=== PATIENT | female | born 2000 | race Caucasian/White ===

== ENCOUNTER 2021-05-02 14:17 | Outpatient (REF) | payer OTHER, SELFPAY ==
--- NOTE | ~2021-05-02 | XR_ITS ---
EXAMINATION: XR CERVICAL SPINE CLINICAL INFORMATION: Headache COMPARISON: Cervical spine radiographs from 08/18/2017 TECHNIQUE: 3 views of the cervical spine were obtained. FINDINGS: The craniocervical junction is normal. The dens and atlantodental articulation are intact. The cervical vertebra have normal height. Alignment is normal. The disc spaces are normal. No evidence of degenerative disc disease. No fracture, subluxation or prevertebral soft tissue swelling. There is lack of lordotic curvature of the cervical spine, but this finding is unchanged compared to 08/18/2017. The visualized lung apices are normal. XR/XR cervical spine 3V IMPRESSION: * No acute osseous injury in the cervical spine. No fracture or malalignment. * No evidence of degenerative disc disease. * The lack of lordotic curvature of the cervical spine might be a manifestation of paraspinal muscle spasm.
== END 2021-05-02 14:18 | disposition home or self-care (01) ==
LOC: HO.HMGCX 14:17
PROVIDERS: PCP Pediatrics; Visit Provider Physician Assistant Medical
DX: R51.9 Headache, unspecified (principal); M54.2 Cervicalgia; V89.2XXA Person injured in unspecified motor-vehicle accident, traffic, initial encounter
CPT/HCPCS: 72040

== ENCOUNTER 2021-07-18 14:00 | Outpatient (RCR) | payer OTHER, SELFPAY ==
--- NOTE | 2021-08-17 08:37 | MHC.PT.DC ---
[facility] [place] [facility] [place] [facility] [place] [facility] [address] iNcole Jones [address] [phone] F: [phone] F: [phone] F: [phone] F: [phone] Physical Therapy Discharge Report Diagnosis: This is a 21 yo female presenting to skilled PT with a script for neck pain, HIDALGO. Date of Surgery: Date of Evaluation: 05/09/21 Date of Discharge: 08/17/21 Treatments to Date: 14 Cancellations to Date: 1 No Shows to Date: 0 Discharge Status: Achieved Goals Improved Function Independent with HEP Patient Elected to Stop Discharge Summary: Patient had progressed through her ther-ex program, she had improved HIDALGO symptoms and had returned to cheerleading. She demo'd good ROM and improving strength. The patient's chart was kept open for 30 days and then DC'd to HEP. She has met her goals and is ready for DC at this time. Electronically signed by: Almita Georges, PT Please sign and return to therapist. Thank you for your referral.
== END 2021-08-17 08:37 | disposition home or self-care (01) ==
LOC: HO.PTCHIC 14:00
PROVIDERS: PCP Pediatrics; Visit Provider Physician Assistant Medical
DX: R51.9 Headache, unspecified (principal); M54.2 Cervicalgia; V89.2XXD Person injured in unspecified motor-vehicle accident, traffic, subsequent encounter
CPT/HCPCS: 97012; 97014; 97110; 97140; 97161

== ENCOUNTER 2023-08-01 12:55 | Outpatient (AMB) | payer OTHER, SELFPAY ==
[2023-08-01 13:18] VITALS: BP 96/64; PULSE 86; O2SAT 99
--- NOTE | 2023-08-01 13:18 | A.OFFPC_ITS ---
Vital Signs 08/01/23 13:18 Height 5 ft 4 in Weight 175 lb BMI 30.0 BP 96/64 Blood Pressure Location Lt brachial Position Sitting Pulse 86 Pulse Source Pulse Oximeter Pulse Oximetry (%) 99 Oxygen Delivery Method Room Air Intake Visit Reasons: PE Intake Note: Pt is here today for PE. Pt has [facility] [employer] at [place] and her last pap was last year January. Allergies No Known Allergies [No Known Allergies*] Allergy (Verified 08/01/23 13:23) Medication List - Last Reconciled 08/01/23 by Huma Rondon MD escitalopram oxalate 1.5 tablet po medroxyprogesterone 150 mg IM [id number] methylphenidate HCl ER 36 mg PO BEDTIME Tobacco use date assessed: 08/01/23 Dental Screening Dental Screen Date: 08/01/23 Did you have a dental visit in the last 12 months?: Yes Did you have a dental problem in the last 6 months where you did not have access to dental care?: No Was dental information given to patient?: Patient has dentist HPI PE HPI Details Pt presents for PE. Pt would like to have a referral to plastic surgeon to discuss breast reduction surgery. She complains of chronic neck and shoulder pain due to large breasts which has not decrease inside after patient lost 20 lbs. [facility] Family History (Updated 08/01/23 @ 13:49 by Huma Rondon MD) Maternal Grandfather Substance use disorder Father Hyperlipidemia HTN (hypertension) Paternal Uncle Substance use disorder Paternal Uncle Substance use disorder Brother Substance use disorder Paternal Aunt Substance use disorder Mother Hypothyroid Maternal Grandmother DM type 2 (diabetes mellitus, type 2) Social History Household Members Other:: lives with parents, student at [employer] [facility] [employer] Housing: House Patient Tobacco Use Status: Never used Tobacco e-Cigarette/Vaping Use: Never Used service: No Current occupational status: employed Cognitive needs: No Hearing needs: No Vision needs: No Questionnaire PHQ-9 Over the last 2 weeks, how often have you been bothered by any of the following problems? 1. Little interest or pleasure in doing things: not at all 2. Feeling down, depressed, or hopeless: not at all 3. Trouble falling or staying asleep, or sleeping too much: several days 4. Feeling tired or having little energy: several days 5. Poor appetite or overeating: not at all 6. Feeling bad about yourself - or that you are a failure or have let yourself or your family down: not at all 7. Trouble concentrating on things, such as reading the newspaper or watching television: several days 8. Moving or speaking so slowly that other people could have noticed. Or the opposite - being so fidgety or restless that you have been moving around a lot more than usual: not at all 9. Thoughts that you would be better off or of hurting yourself in some way: not at all Total score: 3 Depression Screening Interpretation: Negative Depression Screening Done: Yes Source: Developed by Drs. Kwame Robin, Yenni Worley, Raul Cadena and colleagues, with an educational nilay from [employer]. Thrive Questionnaire Date Thrive assessed: 08/01/23 I am a: Patient What is your living situation today?: I have a steady place to live Within the past 12 months, did the food you bought not last and you didn't have the money to get more?: Never true Within the past 12 months, did you worry whether your food would run out before you got money to buy more?: Never true Do you have trouble paying for medicines?: No Do you have trouble getting transportation to medical appointments?: No Do you have trouble paying your heating and electricity bill?: No Do you have trouble taking care of your child, family member or friend?: No Do you have trouble with day-to-day activities such as bathing, preparing meals, shopping, managing finances, etc.?: No Are you currently unemployed and looking for a job?: No Are you interested in more education?: Yes Please select the resources that you would like help with: Education Currently or been in a relationship where the following occur: no concerns reported THRIVE Score: 0 AUDIT C Alcohol Use Questionnaire (AUDIT-C) 1. How often do you have a drink containing alcohol?: Monthly or less 2. How many drinks containing alcohol do you have on a typical day when you are drinking?: 1 or 2 3. How often do you have six or more drinks on one occasion?: Never Total Score: 1 BRITIN-7 AMB Questionnaire BRITNI-7 Date BRITNI - 7 assessed: 08/01/23 Feeling nervous, anxious, or on edge: 1 = Several days Not being able to stop or control worryin = Several days Worrying too much about different things: 1 = Several days Trouble relaxin = Not at all Being so restless that it is hard to sit still: 0 = Not at all Becoming easily annoyed or irritable: 0 = Not at all Feeling afraid as if something awful might happen: 1 = Several days Total BRITNI-7 score (0-4 normal; 5-9 mild; 10-14 moderate; 15-21 severe): 4 Source: Developed by Drs. Kwame Robin, Yenni Worley, Raul Cadena and colleagues, with an educational nilay from [employer]. Review of Systems Const All systems reviewed & are unremarkable except as noted in HPI and below Reports no additional complaints Eyes Reports no additional complaints ENT Reports no additional complaints Card Reports no additional complaints Resp Reports no additional complaints GI Reports no additional complaints Reports no additional complaints Physical exam (Primary Care) Vital Signs: Last Vital Signs Pulse 86 08/01/23 13:18 BP 96/64 08/01/23 13:18 Pulse Ox 99 08/01/23 13:18 Oxygen Delivery Method Room Air 08/01/23 13:18 BMI result Body Mass Index 30.0 Tobacco/Smoking Status: Tobacco use Status Tobacco use date assessed 08/01/23 08/01/23 13:25 Patient Tobacco Use Status Never used Tobacco 08/01/23 13:18 e-Cigarette/Vaping Use Never Used 08/01/23 13:18 PHQ-9: PHQ-9 Score PHQ-9: Total score 3 08/01/23 13:59 Depression Screening Interpretation: Negative Thrive Assessment: Date of Thrive Assessment Date Thrive assessed 08/01/23 08/01/23 13:58 Currently or been in a relationship where the following occur: no concerns reported Const General: no acute distress HENMT Head: Yes normal to inspection Ears: hearing grossly normal bilaterally Face and sinus: Yes normal facial exam Neck Neck: Yes no lymphadenopathy and Yes supple Resp Effort & Inspection: normal respiratory effort Auscultation: clear to auscultation bilaterally Cardio Rhythm: regular rhythm Heart sounds: S1 normal heart sound present and S2 normal heart sound present GI Inspection: Yes normal to inspection Palpation (GI): Soft to palpation Percussion: Yes normal to percussion Auscultation: normal bowel sounds Office Procedures Flu Questionnaire Does the patient have a severe egg allergy?: No Does the patient have severe life threatening allergies?: No Does the patient have a fever or illness today?: No Has the patient ever had Guillain-[place] Syndrome?: No Has the patient ever had any past reaction to a flu shot?: No Immunizations flu vacc [id number] 6mos up(PF) 60 mcg(15 mcgx4)/0.5 mL IM syringe Performing Provider: Huma Rondon MD Performing Location: [facility] Administered by: MADISON Cabrera on 08/01/23 13:58 Dose Route Admin Location Dispensed Lot Number Expiration Date NDC [employer] 0.5 mL IM Left Deltoid 0.5 mL [id number] 01/11/24 [id number] [employer] VIS Given Date VIS Provided VIS Publication Date 08/01/23 Single Vaccine 21 Eligibility Eligibility Date Funding Source Not [facility] Eligible 08/01/23 Private Assessment and Plan Assessment & Plan (1) Annual physical exam: Code(s): Z00.00 - Encounter for general adult medical examination without abnormal findings Plan: Well-balanced diet regular physical activity discussed with the patient. she will return for fasting blood work. 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 Panel Fast Today Z00.00 - Encounter for general adult medical examination without abnormal findings, Z86.59 - Personal history of other mental and behavioral disorders Complete Blood Count Auto Diff Today Z00.00 - Encounter for general adult medical examination without abnormal findings, Z86.59 - Personal history of other mental and behavioral disorders Lipid Panel Today Z00.00 - Encounter for general adult medical examination without abnormal findings, Z86.59 - Personal history of other mental and behavioral disorders TSH reflex Free T4 Today Z00.00 - Encounter for general adult medical examination without abnormal findings, Z86.59 - Personal history of other mental and behavioral disorders Influenza [id number] Immunization Today Z23 - Encounter for immunization HIV Ab/Ag Today Z00.00 - Encounter for general adult medical examination without abnormal findings Syphilis Screen Today Z00.00 - Encounter for general adult medical examination without abnormal findings CT NG by PCR Today Z00.00 - Encounter for general adult medical examination without abnormal findings Coding Level of Care Code Est Pt Prev Care [id number]([id number]) Diagnoses Annual physical exam Z00.00 Hx of major depression Z86.59 Hypertrophy of breast N62
== END 2023-08-01 14:14 | disposition home or self-care (01) ==
PROVIDERS: PCP Internal Medicine; Visit Provider Internal Medicine
DX: Z00.00 Encounter for general adult medical examination without abnormal findings (principal); Z86.59 Personal history of other mental and behavioral disorders; N62 Hypertrophy of breast; Z23 Encounter for immunization
CPT/HCPCS: 90471; 90686; 99395

== ENCOUNTER 2023-08-02 08:07 | Outpatient (REF) | payer OTHER, SELFPAY ==
[2023-08-02 11:29] LABS: MANUAL DIFF FLAG NO
[2023-08-02 11:45] LABS: Basophils Percent Auto 0.3 % (0-2); Eosinophils Absolute Auto 0.1 X10*3/uL (0.0-0.4); Eosinophils Percent Auto 0.8 % (0-4); Hematocrit 39.7 % (37.0-47.0); Hemoglobin 12.8 g/dl (12.0-16.0); Imm Gran Abs Auto 0.03 X10*3/uL (0.00-0.03); Imm Gran Pct Auto 0.3 % (0.0-0.4); Lymphocytes Absolute Auto 2.2 X10*3/uL (1.2-4.9); Lymphocytes Percent Auto 24.4 % (20-40); Mean Corpuscular HGB Conc 32.2 g/dl (31.0-35.0); Mean Corpuscular Hemoglobin 28.6 pg (27.0-33.0); Mean Corpuscular Volume 88.6 fL (80.0-98.0); Mean Platelet Volume 11.5 fL (9.4-12.3); Monocytes Absolute Auto 0.6 X10*3/uL (0.1-1.2); Monocytes Percent Auto 7.1 % (2-11); Neutrophils Percent Auto 67.1 % (45-73); Platelet Count 292 X10*3/uL (160-400); Red Blood Count 4.48 X10*6/uL (4.20-5.50); Red Cell Distribution Width 13.1 % (11.0-16.0)
[2023-08-02 12:05] LABS: Alanine Aminotransferase 15 U/L (0-31); Albumin Level 4.5 g/dL (3.5-5.0); Alkaline Phosphatase 44 U/L (39-117); Anion Gap 14 (12-20); Aspartate Amino Transferase 17 U/L (5-31); Bilirubin Total 0.5 mg/dL (0.0-1.0); Blood Urea Nitrogen 13 mg/dL (9-16); Calcium 9.5 mg/dL (8.4-10.2); Carbon Dioxide 21 mmol/L (22-29); Chloride 107 mmol/L (96-108); Cholesterol 196 mg/dL (<200); Estimated Glomerular Filt Rate > 60; Glucose Fasting 91 mg/dL (60-99); HDL Cholesterol 43 mg/dL (>40); LDL Cholesterol Calculated 138 mg/dL (<100); Potassium 3.8 mmol/L (3.3-5.1); Sodium 138 mmol/L (135-145); Total Protein 7.9 g/dL (6.5-8.0); Triglycerides 76 mg/dL (<150)
[2023-08-02 12:07] LABS: TSH reflex Free T4 2.41 uIU/mL (0.32-4.0)
[2023-08-02 13:03] LABS: CT PCR NOT DETECTED (Not Detect.); NG PCR NOT DETECTED (Not Detect.)
[2023-08-04 08:53] LABS: HIV AB/AG Nonreactive (Nonreactive); HIV Num 1 0.09 S/CO (0.00-0.99)
[2023-08-04 08:54] LABS: Syphilis Screen Nonreactive (Nonreactive)
== END 2023-08-02 08:08 | disposition home or self-care (01) ==
LOC: HO.HMGCLDS 08:07
PROVIDERS: PCP Internal Medicine; Visit Provider Internal Medicine
DX: Z00.00 Encounter for general adult medical examination without abnormal findings (principal); Z86.59 Personal history of other mental and behavioral disorders; Z20.2 Contact with and (suspected) exposure to infections with a predominantly sexual mode of transmission
CPT/HCPCS: 0353U; 80053; 80061; 84443; 85025; 86780; 87389

== ENCOUNTER → 2024-08-06 10:19 | Outpatient (BNVA) | payer OTHER, SELFPAY | PROVIDERS: PCP Internal Medicine; Visit Provider Internal Medicine | DX: Z00.00 Encounter for general adult medical examination without abnormal findings (principal); E78.5 Hyperlipidemia, unspecified; M06.9 Rheumatoid arthritis, unspecified | CPT/HCPCS: 96127 ==

== ENCOUNTER 2024-11-06 11:37 | Outpatient (REF) | payer OTHER, SELFPAY ==
--- NOTE | ~2024-11-06 | XR_ITS ---
CLINICAL HISTORY: M79.675 - Pain in left toe(s) Three views of the left foot. COMPARISON: None FINDINGS: No ankle joint effusion. Normal tarsometatarsal alignment. Tarsals and metatarsals appear intact. Linear lucency along the base of the 5th proximal phalanx, seen only on oblique imaging. Remaining phalanges appear intact. No radiopaque foreign body. IMPRESSION: 1. Linear lucency along the base of the 5th proximal phalanx seen only on oblique imaging favored to represent a small nutrient foramen or overlapping structures. Nondisplaced fracture is considered less likely. Recommend correlation point tenderness and clinical history. This document has been electronically signed by: Nghia Reed MD on 11/06/2024 13:48:35
== END 2024-11-06 11:38 | disposition home or self-care (01) ==
LOC: HO.HMGCX 11:37
PROVIDERS: PCP Internal Medicine; Visit Provider Family Medicine
DX: S92.502A Displaced unspecified fracture of left lesser toe(s), initial encounter for closed fracture (principal)
CPT/HCPCS: 73630

== ENCOUNTER 2024-11-06 11:37 | Outpatient (AMB) | payer OTHER, SELFPAY ==
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
--- OUTSIDE RECORDS SUMMARY | 2024-11-06 11:39 | XMS_ITS ---
Author Organization [address] [phone] Care Team Providers Care Electric Meter Setter Name Role Phone ARSENIO BRENNAN [phone] REASON FOR VISIT telehealth labs Medications Medication SIG (Take, Route, Frequency, Duration) [...] Female Encounters Encounter Location Date Provider Diagnosis [address] [phone] 10/03/2023 ARSENIO BRENNAN Plan Of Treatment No Information Progress Notes * LIVIAWellington BRYANgregDOB: (23 yo F)Acc No.[id number]:10/03/2023 LAB Patient:?Andry QUIÑONEZ tte Provider:?Arsenio Brennan NP :2000???Age:23 Y???Sex:Female D ate:10/03/2023 Address[place] [address] [id number] Subjective: * Chief Complaints: * ???Telehealth labs * Medical History:? * Surgical History:? * Hospitalization/Major Diagno stic Procedure:? * Medications:?TakingConcerta 18 MG Tablet Extended Release 1 tablet in the morning Orally Once a day Depo-Provera 150 MG/ML Suspension 1 ml Intramuscular Every 13- 15 weeks Doxycycline Monohydrate 100 MG Capsule 1 capsule Orally Twice a day Taking Concerta 18 MG Tablet Extended Release 1 tablet in the morning Orally Once a day Taking Depo-Provera 150 MG/ML Suspension 1 ml Intramuscular Every 13-15 weeks Taking Doxycycline Monohydrate 100 MG Capsule 1 capsule Orally Twice a day Objective: * Vitals:? Assessment: Plan: * Treatment: * Procedure Codes:? * Billing Information: * Visit Code:? * Procedure Codes:? * Sign off status: Completed true * Provider:?Arsenio Brennan NP Date:? 024 Generated for Reid pete/Betsy/Rayshawn on:?11/06/2024 11:39 AM EDT
[2024-11-06 12:35] VITALS: BP 90/60; PULSE 78; RESP 15; TEMP 36.8; O2SAT 100; BMI 32.3
--- NOTE | 2024-11-06 12:35 | MHC.OFFWIV ---
Intake Vital Signs 11/06/24 12:35 Height 5 ft 4 in Weight 188 lb BMI 32.3 BP 90/60 Blood Pressure Location Lt brachial Position Sitting Respiration 15 Pulse 78 Pulse Source Pulse Oximeter Temp 98.3 F Temp Source Oral Pulse Oximetry (%) 100 Oxygen Delivery Method Room Air Intake Visit Reasons: EP-Lt toe injured Intake Note: Pt is here today Lt little toe stumped it this morning getting up: swollen and bruised Patient Tobacco Use Status: Never used Tobacco Allergies No Known Allergies [No Known Allergies*] Allergy (Verified 11/06/24 12:38) HPI EP-Lt toe injured HPI Details Patient stubbed L 5th toe this morning. Now increasing pain and swelling with bruis at dorsal aspect of proximal toe. PFSH Surgical History [place] teeth extracted Family History Maternal Grandfather Substance use disorder Father Hyperlipidemia HTN (hypertension) Paternal Uncle Substance use disorder Paternal Uncle Substance use disorder Brother Substance use disorder Paternal Aunt Substance use disorder Mother Hypothyroid Maternal Grandmother DM type 2 (diabetes mellitus, type 2) Social History (Updated 08/06/24 @ 15:56 by Huma Rondon MD) Household Members Other:: lives with girlfriend, applying for PA, neuro Housing: House Patient Tobacco Use Status: Never used Tobacco e-Cigarette/Vaping Use: Never Used service: No Current occupational status: employed Cognitive needs: No Hearing needs: No Vision needs: No Review of Systems Const Denies chills, Denies fatigue, Denies fever(s), Denies headache(s) and Denies weakness ENT Denies dizziness and Denies headache(s) Card Denies dyspnea Resp Denies cough, Denies dyspnea, Denies wheezing and Denies other ( shortness of breath) Musc Details: See HPI Denies numbness and Denies tingling Neuro Denies dizziness, Denies headache(s), Denies numbness, Denies tingling, Denies paresthesias and Denies weakness Psych Denies anxiety and Denies depression Endo Denies fatigue Aller/Immun Denies wheezing Physical Exam Vital Signs: Last Vital Signs Temp 98.3 F 11/06/24 12:35 Pulse 78 11/06/24 12:35 Resp 15 11/06/24 12:35 BP 90/60 11/06/24 12:35 Pulse Ox 100 11/06/24 12:35 Oxygen Delivery Method Room Air 11/06/24 12:35 BMI result Body Mass Index 32.3 Const General: no acute distress and well developed Nutritional Appearance: well nourished Orientation/consciousness: patient oriented x3 HEENT Head: Yes normocephalic and Yes atraumatic Eyes General: appearance normal, both eyes and all related structures Pupils: Equal, round and reactive pupils present EOM: EOMs intact bilaterally Resp Effort & Inspection: normal respiratory effort Neuro General: patient oriented x3 and gait normal Cranial nerves: Yes Equal, round and reactive pupils present Extrem Other: Erythema and swelling at left 5th toe with bruising at dorsal aspect of proximal toe. Pain and tenderness. No angulation Patient is bearing weight Psych Affect: normal affect Assessment & Plan Assessment & Plan (1) Fracture of fifth toe, left, closed: Code(s): S92.502A - Displaced unspecified fracture of left lesser toe(s), initial encounter for closed fracture Plan: X-ray positive for left 5th toe fracture excluding joint space. Closed toe fracture, nondisplaced and no angulation. Ice/heat Elevation Antony-tape for hard-soled shoe-patient is wearing crock which is fairly inflexible. Ibuprofen 800 mg t.i.d. Call or return to office if worsening or not improving Orders: Orders XR foot LT min 3V Today M79.675 - Pain in left toe(s) Medications: New ibuprofen 800 mg PO Q8H 14 days PRN 42 tabs 0RF pain Coding Level of Care Code Est Pt Level 3 (78208) Diagnoses Fracture of fifth toe, left, closed S92.502A
== END 2024-11-06 13:35 | disposition home or self-care (01) ==
LOC: HO.HMCWIC 11:37
PROVIDERS: PCP Internal Medicine; Visit Provider Family Medicine
DX: S92.502A Displaced unspecified fracture of left lesser toe(s), initial encounter for closed fracture (principal)

== ENCOUNTER → 2024-11-06 13:05 | Outpatient (BNV) | payer OTHER, SELFPAY | PROVIDERS: PCP Internal Medicine; Visit Provider Radiology Diagnostic Radiology | DX: M79.675 Pain in left toe(s) (principal) | CPT/HCPCS: 73630 ==

== ENCOUNTER 2025-04-06 12:37 | Outpatient (AMB) | payer OTHER, SELFPAY ==
[2025-04-06 12:41] VITALS: BP 106/66; PULSE 72; RESP 18; TEMP 37.1; O2SAT 99; BMI 32.1
--- NOTE | 2025-04-06 12:41 | MHC.PC.OV ---
Vital Signs 04/06/25 12:41 Height 5 ft 4 in Weight 187 lb BMI 32.1 BP 106/66 Blood Pressure Location Rt brachial Position Sitting Respiration 18 Pulse 72 Pulse Source Pulse Oximeter Temp 98.7 F Temp Source Oral Pulse Oximetry (%) 99 Oxygen Delivery Method Room Air Intake Visit Reasons: lt breast lumps Intake Note: Pt is here today for a sick visit. Pt c/o 2 lumps on her L breast. Allergies No Known Allergies (No Known Allergies*) Allergy (Verified 04/06/25 12:53) Medication List - Last Reconciled 04/06/25 by Huma Rondon MD escitalopram oxalate 1.5 tablet po ibuprofen 800 mg PO Q8H PRN 14 days ketoconazole 2% 1 appl topical DAILY methylphenidate HCl ER 36 mg PO BEDTIME Tobacco use date assessed: 04/06/25 Dental Screening Dental Screen Date: 08/06/24 HPI lt breast lumps HPI Details Patient complains of painful left breast lumps for a few weeks. She denies any change or discharge from the nipple or swelling in the left axilla. [facility] Medical History (Updated 04/06/25 @ 15:46 by Huma Rondon MD) Rheumatoid arthritis Normal pelvic exam Constipation Hyperlipidemia Hx of major depression ADHD Breast mass, left Surgical History [place] teeth extracted Family History Maternal Grandfather Substance use disorder Father Hyperlipidemia HTN (hypertension) Paternal Uncle Substance use disorder Paternal Uncle Substance use disorder Brother Substance use disorder Paternal Aunt Substance use disorder Mother Hypothyroid Maternal Grandmother DM type 2 (diabetes mellitus, type 2) Social History Household Members Other:: lives with girlfriend, applying for PA, neuro Housing: House Patient Tobacco Use Status: Never used Tobacco e-Cigarette/Vaping Use: Never Used service: No Current occupational status: employed Cognitive needs: No Hearing needs: No Vision needs: No Questionnaire PHQ-9 Over the last 2 weeks, how often have you been bothered by any of the following problems? 1. Little interest or pleasure in doing things: not at all 2. Feeling down, depressed, or hopeless: not at all 3. Trouble falling or staying asleep, or sleeping too much: not at all 4. Feeling tired or having little energy: not at all 5. Poor appetite or overeating: not at all 6. Feeling bad about yourself - or that you are a failure or have let yourself or your family down: not at all 7. Trouble concentrating on things, such as reading the newspaper or watching television: not at all 8. Moving or speaking so slowly that other people could have noticed. Or the opposite - being so fidgety or restless that you have been moving around a lot more than usual: not at all 9. Thoughts that you would be better off or of hurting yourself in some way: not at all Total score: 0 Depression Screening Interpretation: Negative Depression Screening Done: Yes Source: Developed by Drs. Kwame Robin, Yenni Worley, Raul Cadena and colleagues, with an educational nilay from [employer]. Thrive Questionnaire Date Thrive assessed: 08/06/24 I am a: Patient What is your living situation today?: I have a steady place to live Within the past 12 months, did the food you bought not last and you didn't have the money to get more?: Never true Within the past 12 months, did you worry whether your food would run out before you got money to buy more?: Never true Do you have trouble paying for medicines?: No Do you have trouble getting transportation to medical appointments?: No Do you have trouble paying your heating and electricity bill?: No Do you have trouble taking care of your child, family member or friend?: No Do you have trouble with day-to-day activities such as bathing, preparing meals, shopping, managing finances, etc.?: No Are you currently unemployed and looking for a job?: Yes Are you interested in more education?: Yes Please select the resources that you would like help with: None Currently or been in a relationship where the following occur: No concerns reported THRIVE Score: 0 BRITNI-7 AMB Questionnaire BRITNI-7 Date BRITNI - 7 assessed: 08/06/24 Feeling nervous, anxious, or on edge: 2 = More than half the days Not being able to stop or control worryin = More than half the days Worrying too much about different things: 2 = More than half the days Trouble relaxin = More than half the days Being so restless that it is hard to sit still: 2 = More than half the days Becoming easily annoyed or irritable: 2 = More than half the days Feeling afraid as if something awful might happen: 2 = More than half the days Total BRITNI-7 score (0-4 normal; 5-9 mild; 10-14 moderate; 15-21 severe): 14 Source: Developed by Drs. Kwame Robin, Yenni Worley, Raul Cadena and colleagues, with an educational nilay from [employer]. Review of Systems Const All systems reviewed & are unremarkable except as noted in HPI and below ENT Reports no additional complaints Card Reports no additional complaints Resp Reports no additional complaints GI Reports no additional complaints Reports no additional complaints Physical exam (Primary Care) Vital Signs: Last Vital Signs Temp 98.7 F 04/06/25 12:41 Pulse 72 04/06/25 12:41 Resp 18 04/06/25 12:41 BP 106/66 04/06/25 12:41 Pulse Ox 99 04/06/25 12:41 Oxygen Delivery Method Room Air 04/06/25 12:41 BMI result Body Mass Index 32.1 Tobacco/Smoking Status: Tobacco use Status Tobacco use date assessed 04/06/25 04/06/25 12:55 Patient Tobacco Use Status Never used Tobacco 04/06/25 12:43 e-Cigarette/Vaping Use Never Used 04/06/25 12:43 PHQ-9: PHQ-9 Score PHQ-9: Total score 0 04/06/25 12:55 Depression Screening Interpretation: Negative Thrive Assessment: Date of Thrive Assessment Date Thrive assessed 08/06/24 04/06/25 12:43 Currently or been in a relationship where the following occur: No concerns reported Const General: no acute distress HENMT Head: Yes normal to inspection Neck Neck: Yes supple Chest Breast/axilla palpation: axillary lymphadenopathy noted and abnormal palpation of the breast (Left breast at 05:00 and 01:00 firm mobile masses about 1 cm tender ) Resp Effort & Inspection: normal respiratory effort Auscultation: clear to auscultation bilaterally Cardio Rhythm: regular rhythm Heart sounds: S1 normal heart sound present and S2 normal heart sound present Coding Level of Care Code Est Pt Level 3 (15044) Diagnoses Breast mass, left N63.20 Assessment & Plan Assessment & Plan (1) Breast mass, left: Comment: 05:00 and 01:00 Code(s): N63.20 - Unspecified lump in the left breast, unspecified quadrant Category: Medical Plan: Referred for the mammogram and ultrasound Orders: Orders MM tomosynthesis diagnostic BI Today N63.20 - Unspecified lump in the left breast, unspecified quadrant US breast LT limited Today N63.20 - Unspecified lump in the left breast, unspecified quadrant
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
--- OUTSIDE RECORDS SUMMARY | 2025-04-06 15:09 | XMS_ITS | Encounter Summary ---
Author Organization [facility] [place] [address] Care Team Providers Care First Aid Teacher Name Role Phone Huma Rondon MD Primary Care Provider [phone] Reason for Visit * Reason Onset Date Comments Breast Problem 04/05/2025 Encounter Details Date Type Department Care Team (Late Contact Info) Description 04/05/2025 Telephone Obstetrics and Gynecology - [id number] [place], [place] [phone] Kiesha Grayson, [facility] [address] [place], [place] Social History Tobacco Use Types Packs/Day Years Used Date Smoking Tobacco: Never Smokeless Tobacco: Never Alcohol Use Standard Drinks/Week Comments Yes 0 (1 standard drink = 0.6 oz pur e alcohol) Comments No Sex and Gender Information Value Date Recorded Sex Assigned at Not on file Legal Sex Female 9:49 PM EST Gender Identity Not on file Sexual Orientation Not on file documented as of this encounter Progress Notes * Marnie Dawson RN - 04/05/2025 10:23 AM EDT Patient reports she noticed the first lump about a month ago. Now noticed a second one-middle of her cycle. Advised patient we do not have any appointments urgently-we are booking into late April-advised her to check with her PCP to see if they can see her sooner. Pt will check with them/will gt back to us if unable to get an appointment. * Bhavna Hester - 04/05/2025 9:58 AM EDT Chief Complaint/problem: left breast lumps How long has the patient had this problem? Pt???s TAFFY CANDY MAKER provider: Kiesha Grayson CNM Last menstrual period (LMP) or EDC (due date): na documented in this encounter Plan of Treatment Not on file documented as of this encounter Visit Diagnoses Not on filedocumented in this encounter Care Teams First Aid Teacher Relationship Specialty Start Date End Date Huma Rondon MD PCP - General 01/27/23 documented as of this encounter
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
== END 2025-04-06 15:04 | disposition home or self-care (01) ==
LOC: HO.HMCC 12:38
PROVIDERS: PCP Internal Medicine; Visit Provider Internal Medicine
DX: N63.20 Unspecified lump in the left breast, unspecified quadrant (principal)

== ENCOUNTER 2025-04-20 12:28 | Outpatient (REF) | payer OTHER, SELFPAY ==
--- NOTE | ~2025-04-20 | US_ITS ---
EXAMINATION: US DIAGNOSTIC ULTRASOUND BREAST, LEFT CLINICAL INFORMATION: Palpable left breast lump 1:00 and 5:00.. Family history of breast cancer including patient's mother. COMPARISON: Comparison is made with relevant prior imaging. TECHNIQUE: Ultrasound of the breast is performed with real-time arroyo scale imaging and color Doppler. FINDINGS: Targeted color Doppler ultrasound scanning from 12-6 o'clock demonstrates a hypoechoic oval circumscribed solid mass at 5:00 6 cm from the nipple measuring 24 x 10 x 13 mm. Otherwise scanning in the upper outer quadrant and lower outer quadrant demonstrates normal fibronodular breast tissue. Results are discussed with the patient at time of visit. US/US breast LT limited IMPRESSION: Hypoechoic oval circumscribed solid mass at 5:00 6 cm from the nipple measuring up to 24 mm. Given the size of the mass and patient's family history of breast cancer recommend ultrasound-guided core needle biopsy at this time for confirmation. The findings and recommendations were discussed with the patient the procedure will be scheduled. ASSESSMENT: BI-RADS 4: Suspicious RECOMMENDATION: Biopsy This patient's information was entered into a reminder system with a target due date for their next mammogram. Electronically signed by: Florinda Valero DO 04/20/2025 01:25 PM EDT
== END 2025-04-20 12:29 | disposition home or self-care (01) ==
LOC: HO.MAMMO 12:28
PROVIDERS: PCP Internal Medicine; Visit Provider Internal Medicine
DX: N63.25 Unspecified lump in the left breast, overlapping quadrants (principal)
CPT/HCPCS: 76642

== ENCOUNTER → 2025-04-20 12:30 | Outpatient (BNV) | payer OTHER, SELFPAY | PROVIDERS: PCP Internal Medicine; Visit Provider Internal Medicine | DX: N63.23 Unspecified lump in the left breast, lower outer quadrant (principal) | CPT/HCPCS: 76642 ==

== ENCOUNTER 2025-05-03 11:38 | Outpatient (REF) | payer OTHER, SELFPAY ==
[2025-05-03 16:10] LABS: Appearance Urine Clear; Glucose Urine UA Negative (Negative); PH 6.5 (5.0-9.0); Specific Gravity - Urine 1.020 (1.005-1.025)
[2025-05-03 16:11] LABS: MANUAL DIFF FLAG NO
[2025-05-03 16:22] LABS: Hematocrit 41.6 % (37.0-47.0); Hemoglobin 13.5 g/dl (12.0-16.0); Imm Gran Abs Auto 0.01 X10*3/uL (0.00-0.03); Imm Gran Pct Auto 0.1 % (0.0-0.4); Lymphocytes Absolute Auto 2.7 X10*3/uL (1.2-4.9); Mean Corpuscular HGB Conc 32.5 g/dl (31.0-35.0); Mean Corpuscular Hemoglobin 28.8 pg (27.0-33.0); Mean Corpuscular Volume 88.9 fL (80.0-98.0); NRBC Abs Auto 0.000 X10*3/uL (0.0-0.012); NRBC Pct Auto 0.0 /100WBC (0.0-0.2); Platelet Count 242 X10*3/uL (160-400); Red Blood Count 4.68 X10*6/uL (4.20-5.50); White Blood Count 8.1 X10*3/uL (4.8-10.8)
[2025-05-03 17:20] LABS: Alanine Aminotransferase 16 U/L (0-31); Albumin Level 4.6 g/dL (3.5-5.0); Alkaline Phosphatase 41 U/L (39-117); Anion Gap 13 (12-20); Aspartate Amino Transferase 21 U/L (5-31); Blood Urea Nitrogen 11 mg/dL (9-16); Calcium 9.2 mg/dL (8.4-10.2); Carbon Dioxide 23 mmol/L (22-29); Chloride 109 mmol/L (96-108); Cholesterol 210 mg/dL (<200); Estimated Glomerular Filt Rate > 60; HDL Cholesterol 45 mg/dL (>40); Iron 107 mcg/dL (30-160); Percent Iron Saturation 43 % (15-50); Potassium 3.9 mmol/L (3.3-5.1); Sodium 141 mmol/L (135-145); Total Iron Binding Capacity 248 mcg/dL (228-428); Total Protein 7.6 g/dL (6.5-8.0); Triglycerides 109 mg/dL (<150); Unsaturated Iron Binding 141 ug/dL
== END 2025-05-03 11:39 | disposition home or self-care (01) ==
LOC: HO.HMGCLDS 11:38
PROVIDERS: PCP Internal Medicine; Visit Provider Internal Medicine
DX: R55 Syncope and collapse (principal); F90.9 Attention-deficit hyperactivity disorder, unspecified type; K59.00 Constipation, unspecified; E78.5 Hyperlipidemia, unspecified
CPT/HCPCS: 36415; 80053; 80061; 81001; 83540; 84443; 85025

== ENCOUNTER 2025-05-03 11:38 | Outpatient (AMB) | payer OTHER, SELFPAY ==
[2025-05-03 11:43] VITALS: BP 104/60; PULSE 79; RESP 17; TEMP 37; O2SAT 99; BMI 31.8
--- NOTE | 2025-05-03 11:43 | A.OFFPC_ITS ---
Vital Signs 05/03/25 11:43 Height 5 ft 4 in Weight 185 lb BMI 31.8 BP 104/60 Blood Pressure Location Lt brachial Position Sitting Respiration 17 Pulse 79 Pulse Source Pulse Oximeter Temp 98.6 F Temp Source Oral Pulse Oximetry (%) 99 Oxygen Delivery Method Room Air Intake Visit Reasons: passed out at work Intake Note: Pt is here today for a sick visit. Pt states that few days ago she passed out at work. Allergies No Known Allergies (No Known Allergies*) Allergy (Verified 05/03/25 11:44) Medication List - Last Reconciled 05/03/25 by Huma Rondon MD escitalopram oxalate 1.5 tablet po ibuprofen 800 mg PO Q8H PRN 14 days ketoconazole 2% 1 appl topical DAILY methylphenidate HCl ER 36 mg PO BEDTIME Tobacco use date assessed: 05/03/25 Dental Screening Dental Screen Date: 05/03/25 HPI passed out at work HPI Details Pt had a syncopal episode 5 days ago while sitting at the salon getting her nails done. Pt felt lightheaded, nauseated, felt heat at the neck, tremor of hands. She had a witnessed loss of consciousness but no seizure activities, stool or urine incontinence She regained her consciousness spontaneously and reports feeling weak afterwards. Patient has not had similar episodes in the past. [facility] Medical History (Updated 05/03/25 @ 13:29 by Huma Rondon MD) Rheumatoid arthritis Normal pelvic exam Constipation Hyperlipidemia Hx of major depression ADHD Breast mass, left Surgical History [place] teeth extracted Family History Maternal Grandfather Substance use disorder Father Hyperlipidemia HTN (hypertension) Paternal Uncle Substance use disorder Paternal Uncle Substance use disorder Brother Substance use disorder Paternal Aunt Substance use disorder Mother Hypothyroid Maternal Grandmother DM type 2 (diabetes mellitus, type 2) Social History Household Members Other:: lives with girlfriend, applying for PA, neuro Housing: House Patient Tobacco Use Status: Never used Tobacco e-Cigarette/Vaping Use: Never Used service: No Current occupational status: employed Cognitive needs: No Hearing needs: No Vision needs: No Questionnaire Thrive Questionnaire Date Thrive assessed: 08/06/24 I am a: Patient What is your living situation today?: I have a steady place to live Within the past 12 months, did the food you bought not last and you didn't have the money to get more?: Never true Within the past 12 months, did you worry whether your food would run out before you got money to buy more?: Never true Do you have trouble paying for medicines?: No Do you have trouble getting transportation to medical appointments?: No Do you have trouble paying your heating and electricity bill?: No Do you have trouble taking care of your child, family member or friend?: No Do you have trouble with day-to-day activities such as bathing, preparing meals, shopping, managing finances, etc.?: No Are you currently unemployed and looking for a job?: Yes Are you interested in more education?: Yes Please select the resources that you would like help with: None Currently or been in a relationship where the following occur: No concerns reported THRIVE Score: 0 BRITNI-7 AMB Questionnaire BRITNI-7 Date BRITNI - 7 assessed: 08/06/24 Source: Developed by Drs. Kwame Robin, Yenni Worley, Raul Cadena and colleagues, with an educational nilay from [employer] Review of Systems Const All systems reviewed & are unremarkable except as noted in HPI and below ENT Reports no additional complaints Card Reports no additional complaints Resp Reports no additional complaints GI Reports no additional complaints Reports no additional complaints Physical exam (Primary Care) Vital Signs: Last Vital Signs Temp 98.6 F 05/03/25 11:43 Pulse 79 05/03/25 11:43 Resp 17 05/03/25 11:43 BP 104/60 05/03/25 11:43 Pulse Ox 99 05/03/25 11:43 Oxygen Delivery Method Room Air 05/03/25 11:43 BMI result Body Mass Index 31.8 Tobacco/Smoking Status: Tobacco use Status Tobacco use date assessed 05/03/25 05/03/25 11:49 Patient Tobacco Use Status Never used Tobacco 05/03/25 11:49 e-Cigarette/Vaping Use Never Used 05/03/25 11:49 Thrive Assessment: Date of Thrive Assessment Date Thrive assessed 08/06/24 05/03/25 11:49 Currently or been in a relationship where the following occur: No concerns reported Const General: no acute distress HENMT Head: Yes normal to inspection Ears: hearing grossly normal bilaterally Face and sinus: Yes normal facial exam Eyes General: appearance normal, both eyes and all related structures Neck Neck: Yes supple Resp Effort & Inspection: normal respiratory effort Auscultation: clear to auscultation bilaterally Cardio Rhythm: regular rhythm Heart sounds: S1 normal heart sound present and S2 normal heart sound present GI Inspection: Yes normal to inspection Palpation (GI): Soft to palpation Percussion: Yes normal to percussion Auscultation: normal bowel sounds Coding Level of Care Code Est Pt Level 3 (37943) Diagnoses Vasovagal episode R55 Assessment & Plan Assessment & Plan (1) Vasovagal episode: Code(s): R55 - Syncope and collapse Category: Medical Plan: Obtain basic blood work today. Patient was advised to stay well hydrated. Orders: Orders IRON PROFILE Today R55 - Syncope and collapse Lipid Panel Today R55 - Syncope and collapse TSH reflex Free T4 Today R55 - Syncope and collapse Comprehensive Met. Panel Today R55 - Syncope and collapse Complete Blood Count Auto Diff Today R55 - Syncope and collapse UA w Microscopic Today R55 - Syncope and collapse
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
== END 2025-05-03 13:30 | disposition home or self-care (01) ==
PROVIDERS: PCP Internal Medicine; Visit Provider Internal Medicine
DX: R55 Syncope and collapse (principal)

== ENCOUNTER 2025-05-10 08:18 | Outpatient (AMB) | payer OTHER, SELFPAY ==
--- NOTE | 2025-05-10 08:28 | A.OFFVIS_ITS ---
Vital Signs 3 05/10/25 08:37 Height 5 ft 4 in Weight 188 lb BMI 32.3 BP 112/53 L Blood Pressure Location Rt brachial Position Sitting Pulse 68 Intake Visit Reasons: L brst mass BX 5 o'clock Intake Note: Patient is seen in office ultrasound biopsy CONSULT left breast 5 o'clock mass. Patient c/o: reports lump not bothersome, first noticed in January. Mother and maternal aunt w/ hx of breast CA. Denies breast pain, nipple discharge. Bx @ 9am In Store Marketing Representative Required: No Accompanied by: Self / Same As Patient Allergies No Known Allergies (No Known Allergies*) Allergy (Verified 05/10/25 08:33) Medication List - Last Reconciled 05/10/25 by Ar Pathak MD escitalopram oxalate 1.5 tablet po ibuprofen 800 mg PO Q8H PRN 14 days ketoconazole 2% 1 appl topical DAILY methylphenidate HCl ER 36 mg PO BEDTIME HPI Comments Details: 25-year-old female patient presenting with a palpable mass noted on self- examination in January. She denies any pain associated with the lump in does not feel the lump has changed significantly since she 1st noted in the shower. She denies a previous history of breast problems or breast surgery. Her family history is significant for a maternal aunt with breast cancer. Her mother had a palpable mass which was removed and determined to be benign in 2017. The patient denies any other symptoms in the breast including skin changes, nipple discharge, enlarged lymph nodes or other palpable masses. Her menarche was at 13, she is 0 para 0, and her LMP was one-month ago. An ultrasound of the breast performed on 04/20/2025 revealed a hypoechoic oval circumscribed solid mass in the 05:00 location 6 cm from the nipple measuring up to 24 mm. Given the size of the mass in the patient's family history of breast cancer, an ultrasound-guided core biopsy was recommended. She is scheduled for this ultrasound-guided core biopsy at the [facility] later today. [facility] Medical History Rheumatoid arthritis Normal pelvic exam Constipation Hyperlipidemia Hx of major depression ADHD Breast mass, left Surgical History [place] teeth extracted Family History Maternal Grandfather Substance use disorder Father Hyperlipidemia HTN (hypertension) Paternal Uncle Substance use disorder Paternal Uncle Substance use disorder Brother Substance use disorder Paternal Aunt Substance use disorder Mother Hypothyroid Maternal Grandmother DM type 2 (diabetes mellitus, type 2) Maternal Aunt Breast CA Social History Household Members Other:: lives with girlfriend, applying for PA, neuro Housing: House Patient Tobacco Use Status: Never used Tobacco e-Cigarette/Vaping Use: Never Used service: No Current occupational status: employed Cognitive needs: No Hearing needs: No Vision needs: No Review of Systems Const All systems reviewed & are unremarkable except as noted in HPI and below Physical Exam Vital Signs: Last Vital Signs Pulse 68 05/10/25 08:37 BP 112/53 L 05/10/25 08:37 BMI result Body Mass Index 32.3 Const General: cooperative and no acute distress Nutritional Appearance: well nourished Orientation/consciousness: patient oriented x3 Limitations: no limitations HEENT Head: Yes normocephalic and Yes atraumatic Ears: hearing grossly normal bilaterally Chest Other: Left breast: No skin change, no nipple retraction, no nipple discharge, palpable mass noted deep in the 05:00 location below the nipple-areolar complex, mobile within the breast tissue measuring at least 1.5 cm in diameter, nontender to palpation, no enlarged lymph nodes. Right breast: No skin change, no nipple retraction, no nipple discharge, no palpable mass, no enlarged lymph nodes Chest/axillae images: 2 1. Palpable mass left breast Resp Effort & Inspection: normal respiratory effort, no audible wheezes, no cough and no respiratory distress Cardio Jugular venous distension: no JVD GI Inspection: Yes normal to inspection Skin Other: Warm, dry, no rash Neuro General: patient oriented x3 Extrem General: Yes no clubbing, cyanosis or edema Results Reviewed Results Reviewed: Ultrasound left breast: Assessment & Plan Assessment & Plan (1) Breast mass, left: Comment: 05:00 and 01:00 Code(s): N63.20 - Unspecified lump in the left breast, unspecified quadrant Category: Medical Qualifiers: Breast mass location: lower outer quadrant Qualified Code(s): N63.23 - Unspecified lump in the left breast, lower outer quadrant (2) Abnormal ultrasound of breast: Code(s): R92.8 - Other abnormal and inconclusive findings on diagnostic imaging of breast Category: Medical Plan 25-year-old female patient presenting with a suspicious mass located in the left breast in the 05:00 location noted on self-examination but confirmed on ultrasound. She is scheduled for an ultrasound-guided core biopsy later today at the [facility]. She will return approximately 1 week to review the pathology results and discuss treatment options as necessary. She expressed understanding and agrees with the plan. Orders: Orders 2 US breast ndl core biopsy LT Today N63.20 - Unspecified lump in the left breast, unspecified quadrant, R92.8 - Other abnormal and inconclusive findings on diagnostic imaging of breast Coding Level of Care Code New Pt Level 4 (81519) Diagnoses Mass of lower outer quadrant of left breast N63.23 Breast mass location: lower outer quadrant Abnormal ultrasound of breast R92.8
[2025-05-10 08:37] VITALS: BP 112/53; PULSE 68; BMI 32.3
--- OUTSIDE RECORDS SUMMARY | 2025-05-10 08:53 | XMS_ITS | Clinical Summary ---
Author Organization [address] Address [address] [place] [id number] Phone Care Team Providers Care Group Home Counselor Name Role Phone Huma Rondon MD Primary Care Provider [phone] Allergies No known active allergies Medications cloNIDine [...] patient 05/17/2024 Pauciarticular juvenile rheu matoid arthritis ([facility] V24, [facility] V28) 05/17/2024 Recurrent major depressive d isorder in remission ([facility] V24) 05/17/2024 Suicidal ideation 05/17/2024 Encounters Date Type Department Care Team Description 04/05/2025 Telephone Obstetrics and Gynecology [address] [id number] Kiesha Grayson CNM from Last 3 Months Immunizations Immunization Administration Dates Next Due DTaP (Infanrix) 6wks to less than 7yo ,09/28/2002,2001,06/09,2001 H1N1 Inj 08/16/2009,05/24/2009 HPV 9-valent (Gardisil) 9yo to less than 46yo 08/24/2013,04/13/2013,02/05/2013 Hepatitis B (Lpivmda-P-Zlxru , Recombivax HB-Adult) 19yo and older 2001,2001,2001 [...] Grandmother Other: myocardial infarcation Uncle 1 massive [place] and at 55 Other: high cholesterol Uncle [...] RESULTING AGENCY - 09/16/2022 8:06 AM EST [id number] THINPREP PAP, IMAGED: NEGATIVE FOR SQUAMOUS INTRAEPITHELIAL [...] Relevant to Health Maintenance Insurance Care Teams Group Home Counselor Relationship Specialty Start Date End Date Huma Rondon MD PCP - General 01/27/23
== END 2025-05-10 08:48 | disposition home or self-care (01) ==
LOC: HO.HGS 08:19
PROVIDERS: PCP Internal Medicine; Visit Provider Surgery
DX: N63.23 Unspecified lump in the left breast, lower outer quadrant (principal); R92.8 Other abnormal and inconclusive findings on diagnostic imaging of breast
CPT/HCPCS: 99204

== ENCOUNTER 2025-05-10 08:51 | Outpatient (REF) | payer OTHER, SELFPAY ==
--- NOTE | ~2025-05-10 | US_ITS ---
EXAMINATION/PROCEDURE: ULTRASOUND GUIDED CORE BIOPSY BREAST, LEFT CLINICAL INFORMATION: Status post left breast ultrasound on April 20, 2025 to evaluate a palpable concern. The survey shows a 2.4 x 1.0 x 1.3 cm solid mass at 5 o'clock position at 6 cm from the nipple. Ultrasound-guided needle core biopsy was recommended. COMPARISON: Left breast ultrasound on April 20, 2025. FINDINGS: Proper informed consent is obtained from the patient after discussion of the procedure, potential risks and complications, and alternatives. Patient was given an opportunity for questions. The patient appeared to understand. The patient consented to the procedure and signed the consent form. GUIDANCE: Ultrasound-guided; aseptic technique. LESION: 2.5 x 1.0 x 1.7 cm solid mass at 5 o'clock position 6 cm from the nipple. ANESTHESIA: 6 cc of lidocaine 1% buffered with Sodium Bicarbonate 8.4% (9ml:1ml ratio). NEEDLE: 14-gauge Bard Marquee biopsy device with co-axial introducer. CORES: 3. CLIP: Ultraclip; shape: heart. No postprocedure mammogram was obtained given patient's young age. The patient tolerated the procedure well. No immediate complications. Home instructions reviewed with the patient. Final pathology results are pending. US/US breast ndl core biopsy LT IMPRESSION: 1. Status post ultrasound-guided core biopsy left breast solid mass at 5 o'clock position 6 cm from the nipple. 2. Clip placed: Ultraclip; shape: heart. 3. Pathology pending. An addendum report will be issued. Electronically signed by: Quentin Linton MD 05/10/2025 10:50 AM EDT
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
[2025-05-10] MEDS: Lidocaine HCl 1 % 20 ML VIAL 9 ML SUBCUT (10:08)
== END 2025-05-10 08:52 | disposition home or self-care (01) ==
LOC: HO.MAMMO 08:51
PROVIDERS: PCP Internal Medicine; Visit Provider Surgery
DX: R92.8 Other abnormal and inconclusive findings on diagnostic imaging of breast (principal); N63.23 Unspecified lump in the left breast, lower outer quadrant
CPT/HCPCS: 19083; 88305; A4648; J2003

== ENCOUNTER → 2025-05-10 09:00 | Outpatient (BNV) | payer OTHER, SELFPAY | PROVIDERS: PCP Internal Medicine; Visit Provider Radiology Body Imaging | DX: N63.23 Unspecified lump in the left breast, lower outer quadrant (principal) | CPT/HCPCS: 19083 ==

== ENCOUNTER 2025-05-13 11:31 | Outpatient (AMB) | payer OTHER, SELFPAY ==
--- NOTE | 2025-05-13 11:33 | A.OFFVIS_ITS ---
Vital Signs 05/13/25 11:39 Height 5 ft 4 in Weight 186 lb BMI 31.9 BP 116/57 L Blood Pressure Location Rt brachial Position Sitting Pulse 94 Intake Visit Reasons: fuv brst US BX Intake Note: Patient here s/p Lt br us bx on 05-10-2025 Patient c/o: reports bx site feels sore. Denies oozing, inflammation. Caster Helper Required: No Accompanied by: Self / Same As Patient Allergies No Known Allergies (No Known Allergies*) Allergy (Verified 05/13/25 11:39) HPI HPI fuv brst US BX: Details: 25-year-old female presenting today for her US-guided core biopsy results. She initially presented with complaints of a palpable left breast mass noted on self-examination in January. An ultrasound of the breast performed on 04/20/2025 revealed a hypoechoic oval circumscribed solid mass in the 05:00 location 6 cm from the nipple measuring up to 24 mm. Given the size of the mass in the patient's family history of breast cancer, an ultrasound-guided core biopsy was recommended. Ultrasound-guided core biopsy was performed on 05/10/25. She tolerated the procedure well but notes some mild residual tenderness of the region. She is anxious about the results. [facility] Medical History Rheumatoid arthritis Normal pelvic exam Constipation Hyperlipidemia Hx of major depression ADHD Breast mass, left Surgical History [place] teeth extracted Family History Maternal Grandfather Substance use disorder Father Hyperlipidemia HTN (hypertension) Paternal Uncle Substance use disorder Paternal Uncle Substance use disorder Brother Substance use disorder Paternal Aunt Substance use disorder Mother Hypothyroid Maternal Grandmother DM type 2 (diabetes mellitus, type 2) Maternal Aunt Breast CA Social History Household Members Other:: lives with girlfriend, applying for PA, neuro Housing: House Patient Tobacco Use Status: Never used Tobacco e-Cigarette/Vaping Use: Never Used service: No Current occupational status: employed Cognitive needs: No Hearing needs: No Vision needs: No Physical Exam Vital Signs: Last Vital Signs Pulse 94 05/13/25 11:39 BP 116/57 L 05/13/25 11:39 BMI result Body Mass Index 31.9 Const General: comfortable, no acute distress, alert and anxious Orientation/consciousness: patient oriented x3 Chest Other: left breast- pendulous, no nipple retraction, no nipple discharge, palpable, mobile mass deep in the 5 o clock location below the nipple-areolar complex with old ecchymotic changes of 4-5 o clock region of the skin at the lower outer quadrant, mildly tender, no enlarged lymph nodes Resp Effort & Inspection: normal respiratory effort Skin General skin exam: no rashes or lesions noted Neuro General: patient oriented x3 and moves all extremities Results Reviewed Results Reviewed: Breast, left, 5:00 mass, core biopsy: Fibroadenoma with focal usual ductal hyperplasia. No evidence of malignancy Assessment & Plan Assessment & Plan (1) Fibroadenoma of left breast: Code(s): D24.2 - Benign neoplasm of left breast Category: Medical Plan 25-year-old female with palpable left breast mass with US showing hypoechoic oval circumscribed solid mass in the 05:00 location 6 cm from the nipple measuring up to 24 mm. She underwent US-guided core biopsy which showed a fibroadenoma without evidence of malignancy. She tolerated the biopsy well and has some resolving ecchymosis at the site. She was reassured of the benign results and we discussed there is no further management necessary. She was anxious about the results but is relieved at the benign findings. She can follow up as needed if she develops new concerns. All questions answered. Coding Level of Care Code Est Pt Level 3 (99028) Diagnoses Fibroadenoma of left breast D24.2
[2025-05-13 11:39] VITALS: BP 116/57; PULSE 94; BMI 31.9
--- OUTSIDE RECORDS SUMMARY | 2025-05-13 13:10 | XMS_ITS | Clinical Summary ---
Author Organization [address] Address [address] [place] [phone] Phone Care Team Providers Care Gum Machine Filler Name Role Phone Huma Rondon MD Primary Care Provider [phone] Allergies No known active allergies Medications cloNIDine [...] patient 05/17/2024 Pauciarticular juvenile rheu matoid arthritis ([facility] V24, [facility] V28) 05/17/2024 Recurrent major depressive d isorder in remission ([facility] V24) 05/17/2024 Suicidal ideation 05/17/2024 Encounters Date Type Department Care Team Description 04/05/2025 Telephone Obstetrics and Gynecology [address] [id number] Kiesha Grayson CNM from Last 3 Months Immunizations Immunization Administration Dates Next Due DTaP (Infanrix) 6wks to less than 7yo ,09/28/2002,2001,06/09,2001 H1N1 Inj 08/16/2009,05/24/2009 HPV 9-valent (Gardisil) 9yo to less than 46yo 08/24/2013,04/13/2013,02/05/2013 Hepatitis B (Kecwndn-X-Pixmw , Recombivax HB-Adult) 19yo and older 2001,2001,2001 [...] Grandmother Other: myocardial infarcation Uncle 1 massive [place] and at 55 Other: high cholesterol Uncle [...] RESULTING AGENCY - 09/16/2022 8:06 AM EST [id number] THINPREP PAP, IMAGED: NEGATIVE FOR SQUAMOUS INTRAEPITHELIAL [...] Relevant to Health Maintenance Insurance Care Teams Gum Machine Filler Relationship Specialty Start Date End Date Huma Rondon MD PCP - General 01/27/23
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
== END 2025-05-13 11:49 | disposition home or self-care (01) ==
LOC: HO.HGS 11:32
PROVIDERS: PCP Internal Medicine; Visit Provider Surgery
DX: D24.2 Benign neoplasm of left breast (principal)
CPT/HCPCS: 99213